=== PATIENT | female | born 1960 | race Caucasian/White ===

== ENCOUNTER 2018-02-07 06:47 | Inpatient (IN) | payer OTHER ==
[~2018-02-07] VITALS: Ht 170.2 cm; Wt 94.7 kg
[~2018-02-07 06:47] MED LIST: ALIG4CAP PO; ALPR1TAB3 PO; ATOR20TA15 PO; CLAR10CA3 PO; CYCL10TA PO; GABA600T PO; HYDR-3366 PO; HYDR50TA3 PO; METO100T PO; MULTTAB67 PO; PANT40TA3 PO; ZALE10 PO
[2018-02-07] MEDS ORDERED: ACETAMINOPHEN 1000 MG/100 ML 100 ML IV ONE (07:05)
[2018-02-07] MEDS ORDERED: ARTIFICIAL TEARS OPTH OINT 3.5 APPLIC/3.5 GM TUBO ONE (07:05)
[2018-02-07] MEDS ORDERED: PROPOFOL 500 MG/50 ML INJ 150 ML ONE (07:05)
[2018-02-07] MEDS ORDERED: HYDROmorphone HCL PF 2 MG/ML VIAL ONE (07:06)
[2018-02-07] MEDS ORDERED: MORPHINE SULFATE 4 MG/ML INJ ONE ×2 (07:07→14:39)
[2018-02-07] MEDS ORDERED: METOPROLOL TARTRATE 25 MG TAB PO PRN (07:30)
[2018-02-07] MEDS ORDERED: SODIUM CHLORID 0.9% 500 ML IV PRN (07:30)
[2018-02-07] MEDS ORDERED: POVIDONE IODINE 5% (ANTISEPSIS KIT) 4 APPLICATIONS EACH NARE PRN (07:30)
[2018-02-07] MEDS ORDERED: INSULIN HUMAN REGULAR 1,000 UNITS/10 ML VIAL SQ PRN (07:30)
[2018-02-07] MEDS ORDERED: LACTATED RINGER'S 1000 ML IV PRN (07:30)
[2018-02-07] MEDS ORDERED: CHLORHEXIDINE GLUCONATE 2 % 1 PACK (2 CLOTHS) TOPICAL PRN (07:30)
[2018-02-07] MEDS ORDERED: THROMBIN (TOPICAL) 5,000 UNIT VIAL ONE (07:32)
[2018-02-07] MEDS ORDERED: GENTAMICIN SULFATE 80 MG/2 ML VIAL ONE (07:32)
[2018-02-07] MEDS ORDERED: BUPIVACAINE/EPINEPHRINE 0.5% 50 ML VIAL ONE (07:32)
[2018-02-07] MEDS ORDERED: VANCOMYCIN HCL 1000 MG VIAL ONE (07:32)
[2018-02-07] MEDS ORDERED: GELFOAM SIZE 100 ONE (07:32)
[2018-02-07] MEDS ORDERED: ceFAZolin 2 GM PREMIX 50 ML ONE (07:32)
[2018-02-07] MEDS ORDERED: VANCOMYCIN 1 GM/200 ML PREMIX IV SCH (07:45)
[2018-02-07] MEDS ORDERED: CHLORHEXIDINE GLUCONATE 2 % 1 PACK (2 CLOTHS) TOPICAL SCH (07:45)
[2018-02-07] MEDS: SODIUM CHLOR 0.9% 1000 ML INJ 1,000 ML IV SCH (07:45)
[2018-02-07 08:51] LABS: BILIRUBIN, URINE NEG (NEG); BLOOD, URINE NEG (NEG); GLUCOSE,URINE NEG (NEG); KETONE, URINE NEG (NEG); NITRITE,URINE NEG (NEG); URINE COLOR YELLOW (YELLW/STRAW); URINE LEUKOCYTE ESTERASE NEG (NEG)
[2018-02-07 09:22] LABS: BICARBONATE 26.1 MEQ/L (21.0-32.0); CALCIUM 9.2 MG/DL (8.5-10.1); CREATININE 0.78 MG/DL (0.50-1.00)
[2018-02-07] MEDS ORDERED: ZALEPLON 10 MG CAP PO PRN (10:30)
[2018-02-07] MEDS ORDERED: ACETAMINOPHEN/HYDROcodone 325 MG/10 MG TAB PO PRN (10:30)
[2018-02-07] MEDS ORDERED: MORPHINE SULFATE 4 MG/ML INJ IV PUSH PRN ×2 (10:30)
[2018-02-07] MEDS ORDERED: ACETAMINOPHEN 325 MG TAB PO PRN (10:30)
[2018-02-07] MEDS ORDERED: ceFAZolin 2 GM PREMIX 50 ML IV ONE (10:51)
[2018-02-07] MEDS ORDERED: PANTOPRAZOLE SODIUM 40 MG VIAL IVP SCH (12:00)
[2018-02-07] MEDS: ALPRAZolam 1 MG TAB PO SCH ×2 (12:00→23:55)
[2018-02-07] MEDS ORDERED: MIDAZOLAM HCL 2 MG/2 ML VIAL ONE ×3 (12:18→14:37)
[2018-02-07] MEDS ORDERED: PROPOFOL 500 MG/50 ML INJ 100 ML ONE (12:19)
[2018-02-07] MEDS: GABAPENTIN 300 MG CAP PO SCH ×2 (13:00→18:00)
[2018-02-07] MEDS: CYCLOBENZAPRINE HCL 10 MG TAB PO SCH ×2 (13:00→18:00)
[2018-02-07] MEDS ORDERED: DO NOT ADM ANY ANTICOAGULANT DRUGS PRN (14:21)
[2018-02-07] MEDS ORDERED: *RESP: ALBUTEROL 2.5 MG/3 ML NEB (PRN) PERIprocedural Use ONLY NEB ONE (14:29)
--- NOTE | 2018-02-07 14:30 | RADRPT ---
EXAM DATE: 02/07/2018 2:14 PM EDT AGE/SEX: 57 years / Female INDICATIONS: Herniated disk, stenosis, fusion L4-L5. CLINICAL DATA: This is the patient's initial encounter. Patient reports that signs and symptoms have been present for 1 day and indicates a pain score of Nonresponsive. MEDICAL/SURGICAL HISTORY: Non-responsive. Non-responsive. COMPARISON: No prior exams available for comparison. FINDINGS: 2 images obtained in the operating room during a procedure demonstrates posterior spinal hardware at L4-L5 consisting of bilateral pedicular screws and vertical stabilization rods. Material is also been placed at the L4-L5 disc space. CONCLUSION: Images document changes related to posterior fusion at L4-L5. Electronically signed by: Fred Palafox MD 02/07/2018 2:29 PM EDT
[2018-02-07] MEDS ORDERED: *morphine SULFATE 4 MG/ML PERIprocedure ONLY ONE ×2 (14:43→14:51)
[2018-02-07] MEDS ORDERED: LORazepam 2 MG/ML VIAL ONE (14:44)
[2018-02-07] MEDS ORDERED: LORazepam 2 MG/ML VIAL IV ONE (14:45)
--- NOTE | 2018-02-07 14:54 | PD.OP ---
Operative Report Date of Surgery: Feb 07, 2018 Preoperative Diagnosis: L4-5 spondylolisthesis Postoperative Diagnosis: L4-5 spondylolisthesis Procedure: L4-L5 laminectomy, interbody arthrodhesis using PEEK cage and autologous bone graft, L4-L5 instrumental fixation using transpedicular screws and rods, L4-L5 posterolateral fusion using autologous bone graft and demineralized bone matrix. Microsurgical dissection Anesthesia: general Surgeon: Clifford Estevez Bender Hand(s): Bertha Abreu Operation and Findings: INDICATIONS FOR THE SURGICAL PROCEDURE Ms hartman is a 57 year-old female who presented with intractable mechanical back pain and soniya evidence of L5 lower extremity radiculopathy. She was found to have spondylolisthesis with instability at L4-5 during flexion extension xrays. She failed maximum nonsurgical management including multiple modalities of conservative treatment as well as pain management interventions by an interventional pain specialist. A surgical decompression and arthrodhesis were indicated as a last resort. The [id number] details of the procedure, indications, alternatives, risks and potential complications were fully discussed with the patient. The patient fully understood. All the questions were answered. No guarantees were given. The patient voiced requesting the procedure and provided informed consents. The patient was offered the alternative of delaying the procedure and continuing with nonsurgical management. DETAILS OF THE SURGICAL PROCEDURE Prior to the procedure, the surgical incision was marked in the preoperative surgical holding room, and the procedure, risks, and potential complications revisited with the patient. Placement of electrodes for intraoperative neurophysiological monitoring was completed. The patient was taken to the operative room, and following induction of general anesthesia, endotracheal intubation was performed. A Muller catheter, bilateral ROCHELLE hose and sequential compression devices were placed and kept throughout the procedure. The patient was positioned prone, over a Harley table over a bolsters. All pressure in the preoperative surgical holding room points were carefully padded with eggcrate and gel mattress. The eyes were tapped shut after ointment was applied by the anesthesiologist to prevent corneal abrasion. A Brayan hugger was placed over the expossed lower body to maintain control of the core body temperature. The electrophysiological team placed the needles and electrodes in their proper location and baseline SSEP's and EMG potentials were registered. The entrance to each pedicles was marked using a C arm. The lumbar region was prepped and draped in the usual sterile fashion. The surgical procedure was performed in several steps as follow: SURGICAL APPROACH Once the patient was positioned, a localizing cross-table lateral x-ray was performed with a C-arm. Two paramedian small incisions were outlined on the skin approximately 3cm from the midline. The skin incisions were made with a # 10 blade. Small bleeders were controlled with the cautery. The dissection was then carried out into deper planes and through the thoracolumbar fascia with a Bovie. The intermuscular septum was identified and the myscles were blunted dissected along the septum. The facets and transverse process of L4 and L5 were exposed and the proper anatomical landmarks were identidied. A microsurgical self-retaining retractor was placed on the incision, and a localizing lateralizing cross-table x-ray was performed with an instrument underneath a lamina of the lumbar spine. INSTRUMENTAL FIXATION At this point in the procedure, placement of bilateral transpedicular screws was necessary for stabilization of the spine. Initially, the entry point for the screw was selected anatomically at the junction of the facet, with the transverse process, and the pars interarticularis at L4 and L5. This was started with a Giamshetti needle followed by the use of a lawrence wire. A tap was used to create the threads for the screws. Finally bilateral transpedicular screws were carefully placed bilaterally at L4, and L5 under fluoroscopic visualization. An appropriate purchase was achieved with all screws. The position of each screw was assessed anatomically with an AP, lateral, oblique Xrays. An intraoperative scan view of the spine was then performed using the iso -centric c-arm. Each screw was then assessed electrophysiologically stimulating each screw with a nerve stimulator. SURGICAL DECOMPRESSION There was significant mass effect with compression of the neural structures. In order to relieve neural compression, it was necessary to perform a decompressive laminectomy, with decompression of the spinal canal and bilateral lateral recesses. Note that the scope of such decompression was significantly more extensive than the minimal exposure necessary to perform an interbody fusion, as there was extreme facet arthropathy with near complete collapse of the disk spaces and severe stenosis caused by the hyperthrophic joint facets. At this point of the procedure the operative microscope was draped in the usual sterile fashion and brought to the field. The rest of the surgical procedure was performed using microdissection technique with the exception of the closure. Under the operating microscope, a decompressive laminectomy was carried out at L4-L5 as follow: The laminae, base of the spinous processes and facets were carefully drilled exposing the ligamentum flavum. The facets were abnormal with severe degenerative changes and mechanical instability. A broad- based disk protusion was seen. A near complete facetectomy was necessary resulting in further mechanical instability. The ligamentum flavum appeared hypertrophic, resulting on mass effect on the dorsal surface of the neural structures. The superior free border of the ligamentum flavum was elevated with a ligament dissector and the ligamentum flavum was removed with a 3 and 4 mm Kerrison forceps. The ligament was very adherent to the dural sac and during the dissection, and extreme care was taken during the dissection. The exiting nerve roots were identified, and a wide foraminotomy was performed with a Kerrison in their trajectory towards the neural foramen. Epidural veins located laterally to the dural sac were coagulated with the bipolar cautery, and then incised using microscissors. Gentle medial retraction of the dural sac allowed me to expose the disc space for the discectomy. Upon completion of the discectomy, an excellent decompression of the neural structures was achieved. Increased motion was noted thorough the procedure, which was consistent with mechanical instability. INTERBODY ARTHRODHESIS In order to correct the narrowing of the disk space and maintain distraction of the space, and to achieve a solid interbody fusion, it was necessary the insertion of an interbody device into the disk space. Otherwise, the disk space would collapse, compromising the result of the surgical procedure. At this point of the procedure, the annulus fibrosus of the disk was carefully coagulated with a bipolar cautery and incised using an 11 bladed knife. Then, a microdiscectomy was carried out in a standard fashion using a combination of straight and up-biting pituitary forceps. A reverse angle curette was applied underneath the posterior longitudinal ligament, and used to push the disk fragments into the disk space, so they can be safely removed with a pituitary forceps. Once the discectomy was completed, it was necessary to decorticate the endplates, in order to eliminate the cartilaginous endplate and to expose healthy bone appropriate to perform the interbody fusion. The endplates at L4- L5 were then thoroughly decorticated using increasing size bone jose and ring curets, eliminating the cartilaginous fragments from both, the superior and inferior endplates. A disk space distractor was applied to the pedicle screws and gentle distraction was applied. This maneuver was assisted by the use of a disk distractor. Increased motility was noted at the disk, which was consistent with instability due to facet arthropathy. Once a thorough preparation of the disk space was achieved, the disk space was irrigated with antibiotic solution, and the interbody fusion was performed by carefully impacting a PPEK cage filled with autologous bone graft. The cage was carefully positioned using impactors. A solid position of the cage with good purchase was achieved. The position of the cage was assessed anatomically with a probe and radiologically with the C-arm. POSTEROLATERAL FUSION The posterolateral fusion is a critical component to the procedure, to prevent future fatigue and failure of the instrumental fixation. Initially, the transverse processes of the vertebral bodies, lateral surface of the facets and the lateral gutters of the spine were carefully cleaned, eliminating all soft tissue and muscle attachments. The area was then irrigated with a large amount of antibiotic solution. Subsequently, the transverse processes, lateral surface of the facets, and lateral gutters of the spine were thoroughly decorticated using the TPS drill with a 5mm cutting loco, exposing cancellous bone, in preparation for the posterolateral fusion. The incision was again irrigated with antibiotic solution. Then, the posterolateral fusion was then performed by carefully packing the lateral gutters of the spine at L4-L5 with autologous bone combined with demineralized bone matrix. COMPLETION OF THE INSTRUMENTATION AND CLOSURE The rods were brought to the field, applied to all the screws, and the screw caps were sequentially applied. Compression was performed between the pedicle screws, and final tightening of the screws was completed using a torque wrench. The incision was again thoroughly irrigated with several liters of antibiotic solution, and hemostasis secured with the bipolar cautery. A Valsalva Maneuver performed by the anesthesiologist failed to show any evidence of cerebrospinal fluid leak or bleeding. A 7 mm Harley-Adam drain was left in the epidural space and externalized through a separate stab incision. The incision was then closed in planes. 0 Vicryl was used in an interrupted fashion to close the thoracolumbar fascia and the superficial fascia. The subcutaneous tissue was then approximated using 3-0 Vicryl in an interrupted fashion. Special care was taken to avoid space. The skin was then closed with 4-0 Vicryl in a running, subcuticular fashion. Dermabond was applied to the skin. Each plane of closure was irrigated with antibiotic solution. At the end of the procedure the sponge, needle and instrument counts were all correct. Estimated blood loss was 200 cc. No blood transfusion was given. The entire procedure was performed using continuous electrophysiological monitoring of the somatosensorial evoked potentials and EMG. The patient received prophylactic antibiotics. The patient was then extubated and transferred to the recovery room in stable condition. Clifford Estevez MD Feb 07, 2018 14:54
[2018-02-07] MEDS: NS + KCL 20 MEQ INJ 1,000 ML IV SCH ×2 (15:05→20:20)
[2018-02-07] MEDS ORDERED: NALOXONE HCL 0.4 MG/ML AMP IV PUSH PRN (16:30)
[2018-02-07] MEDS ORDERED: diphenhydrAMINE HCL 50 MG/ML VIAL IV PUSH PRN (16:30)
[2018-02-07] MEDS: HYDROmorphone HCL PCA 6 MG/30 ML IV SCH (16:54)
--- NOTE | 2018-02-07 17:00 | EKG ---
Date Performed: 02/07/2018 Time Performed: 07:17:50 PTAGE: 57 years EKG: Sinus rhythm MODERATE INTRAVENTRICULAR CONDUCTION DELAY BORDERLINE ECG PREVIOUS TRACING : 06/12/1999 17.44 Since the previous tracing, no significant change noted DOCTOR: Reshma Templeton Interpretating Date/Time 02/07/2018 16:58:33
[2018-02-07] MEDS ORDERED: PROPOFOL 200 MG/20 ML AMP IV ONE (18:17)
[2018-02-07] MEDS ORDERED: ROCURONIUM INJ 50 MG/5 ML SYRINGE IV PUSH ONE (18:17)
[2018-02-07] MEDS ORDERED: ePHEDrine/NS 25 MG/5 ML SYRINGE IV ONE (18:17)
[2018-02-07] MEDS ORDERED: LACTATED RINGER'S 1000 ML INJ 2,000 ML IV ONE (18:17)
[2018-02-07] MEDS ORDERED: LIDOCAINE HCL 1% PF 5 ML SYRINGE OTHER ONE (18:17)
[2018-02-07] MEDS ORDERED: PHENYLEPH/NS 1000 MCG/10 ML SYR IV ONE (18:17)
[2018-02-07] MEDS ORDERED: ONDANSETRON HCL 4 MG/2 ML VIAL IV PUSH ONE (18:17)
[2018-02-07] MEDS ORDERED: DEXAMETHASONE SOD PHOS 4 MG/ML VIAL IV ONE (18:17)
[2018-02-07] MEDS ORDERED: PHENYLEPHRINE HCL 10 MG/ML VIAL IV ONE (18:17)
[2018-02-07 19:50] VITALS: BP 106/59; PULSE 101; RESP 18; TEMP 97; O2SAT 95
[2018-02-07] MEDS ORDERED: PANTOPRAZOLE SOD 40 MG DELAYED RELEASE TAB PO SCH (21:00)
[2018-02-07] MEDS: PCA - TOTAL MG DILAUDID DELIVERED PER SHIFT SCH (22:00)
[2018-02-07] MEDS: ATORVASTATIN 20 MG TAB PO SCH (22:04)
[2018-02-07] MEDS: ceFAZolin 2 GM PREMIX 50 ML IV SCH (22:04)
[2018-02-07] MEDS: METOPROLOL TARTRATE 100 MG TAB PO SCH (22:05)
[2018-02-08 00:01] VITALS: BP 101/59; PULSE 90; RESP 16; TEMP 98.7; O2SAT 99
[2018-02-08] MEDS: HYDROmorphone HCL PCA 6 MG/30 ML IV SCH ×2 (01:36→11:49)
[2018-02-08 04:00] VITALS: BP 104/59; PULSE 94; RESP 18; TEMP 98.4; O2SAT 95
[2018-02-08] MEDS: ceFAZolin 2 GM PREMIX 50 ML IV SCH ×2 (04:25→11:35)
[2018-02-08] MEDS: NS + KCL 20 MEQ INJ 1,000 ML IV SCH (05:24)
[2018-02-08] MEDS: ALPRAZolam 1 MG TAB PO SCH ×2 (05:24→11:35)
[2018-02-08] MEDS: PCA - TOTAL MG DILAUDID DELIVERED PER SHIFT SCH ×3 (05:24→22:00)
[2018-02-08 07:57] LABS: AUTOMATED NEUTROPHIL # 16.3 TH/MM3 (1.8-7.7); BASOPHIL % 0.1 % (0.0-2.0); HEMATOCRIT 38.7 % (35.0-46.0); LYMPH % 8.5 % (9.0-44.0); LYMPHOCYTE # 1.6 TH/MM3 (1.0-4.8); MEAN CELL VOLUME 84.8 FL (80.0-100.0); MEAN CORPUSCULAR HEMOGLOBIN 28.5 PG (27.0-34.0); MEAN CORPUSCULAR HGB CONC 33.7 % (32.0-36.0); MONO % 4.4 % (0.0-8.0); MONOCYTE # 0.8 TH/MM3 (0-0.9); PLATELET COUNT 312 TH/MM3 (150-450); RED BLOOD COUNT 4.56 MIL/MM3 (4.00-5.30); RED CELL DISTRIBUTION WIDTH 13.9 % (11.6-17.2); WHITE BLOOD COUNT 18.7 TH/MM3 (4.0-11.0)
[2018-02-08 08:00] VITALS: BP 94/52; PULSE 91; RESP 19; TEMP 99; O2SAT 96
--- NOTE | 2018-02-08 08:17 | PD.CONS ---
HPI Service [facility] Hospitalists Consult Requested By Dr. Estevez Reason for Consult Postoperative medical management Primary Care Physician Doug Aceves D.O. Diagnoses: History of Present Illness 67-year-old female patient with a past medical history which includes hypertension, hyperlipidemia, GERD, migraine headache and tobacco abuse. On patient underwent: L4-L5 laminectomy, interbody arthrodhesis using PEEK cage and autologous bone graft, L4-L5 instrumental fixation using transpedicular screws and rods, L4-L5 posterolateral fusion using autologous bone graft and demineralized bone matrix. Microsurgical dissection with Dr. Estevez. We have been consulted for assistance with postoperative medical management. Patient sitting in chair reports minimal pain. Denies N/V, shortness of breath, chest pain, fevers or chills. Review of Systems ROS Limitations: Clinical Condition Constitutional: DENIES: Fever, Chills, Dizziness Eyes: DENIES: Blurred vision, Diplopia, Vision loss Respiratory: DENIES: Cough, Sputum production, Shortness of breath Cardiovascular: DENIES: Chest pain, Palpitations, Dyspnea on Exertion Gastrointestinal: DENIES: Constipation, Diarrhea, Nausea, Vomiting Musculoskeletal: COMPLAINS OF: Stiffness, Back pain Neurologic: DENIES: Headache, Localized weakness, Paresthesias Psychiatric: DENIES: Anxiety, Confusion, Depression Past Family Social History Past Medical History Hypertension Hyperlipidemia GERD Migraine headaches History of tobacco use Anxiety Diverticulitis Inflammatory bowel disease Leukocytosis Past Surgical History Adenoidectomy Breast biopsy Cholecystectomy Ear surgery Hysterectomy Shoulder surgery Tonsillectomy Colonoscopy 2014 Reported Medications Gabapentin 600 Mg Tab 600 Mg PO TID Pantoprazole (Pantoprazole Sodium) 40 Mg Tab 40 Mg PO BID [place] (Hydrocodone-Acetaminophen) 10-325 Mg Tab 1 Tab PO Q6H PRN Multiple Vitamin 1 Tab 1 Tab PO DAILY Metoprolol Tartrate 100 Mg Tab 100 Mg PO BID Hydrochlorothiazide 50 Mg Tab 50 Mg PO DAILY Flexeril (Cyclobenzaprine HCl) 10 Mg Tab 10 Mg PO TID Claritin (Loratadine) 10 Mg Cap 10 Mg PO DAILY Atorvastatin (Atorvastatin Calcium) 20 Mg Tab 20 Mg PO HS Sonata (Zaleplon) 10 Mg Cap 10 Mg PO HS PRN Alprazolam 1 Mg Tab 1 Mg PO Q6H Align (Lactobacillus Rhamnosus (GG)) 4 Mg (1 Billion Cell) Cap 4 Mg PO DAILY Allergies: Coded Allergies: adhesive tape (Verified Allergy, Severe, Rash, 02/07/18) pseudoephedrine (Verified Allergy, Severe, hyperactivity, 02/07/18) cannot take the D form fentanyl (Verified Allergy, Intermediate, "SLOWED BREATHING", 02/07/18) Uncoded Allergies: DECONGESTANTS (Adverse Reaction, Intermediate, "HYPER", 04/22/10) Family History Father at 69 Mother at 86 Family medical history includes breast cancer, brain cancer, non-Hodgkin's lymphoma, malignant neoplasm of the sinus, diabetes and alcoholism Social History currently unemployed Denies EtOH use Tobacco use smokes 1 pack per day Physical Exam Vital Signs Vital Signs Date Time Temp Pulse Resp B/P (MAP) Pulse Ox O2 Delivery O2 Flow Rate FiO2 02/08/18 05:24 7 02/08/18 04:00 98.4 94 18 104/59 (74) 95 02/08/18 01:36 16 02/08/18 00:01 98.7 90 16 101/59 (73) 99 02/07/18 22:00 15 02/07/18 19:58 Nasal Cannula 2.00 02/07/18 19:50 97.0 101 18 106/59 (75) 95 02/07/18 17:00 92 16 111/89 (96) 94 Nasal Cannula 3 02/07/18 16:54 12 02/07/18 16:00 92 12 104/73 (83) 93 Nasal Cannula 3 02/07/18 15:45 98.1 87 12 103/67 (79) 94 Nasal Cannula 3 02/07/18 15:30 90 12 101/58 (72) 93 Nasal Cannula 3 02/07/18 15:15 89 11 99/56 (70) 92 Nasal Cannula 3 02/07/18 15:00 91 12 104/62 (76) 92 Nasal Cannula 3 02/07/18 14:45 100 17 102/60 (74) 90 Aerosol Mask 02/07/18 14:30 95 19 120/64 (82) 95 Aerosol Mask 02/07/18 14:21 98.3 96 18 118/66 (83) 88 Simple Mask 6 02/07/18 08:10 99.1 78 20 122/77 (92) 96 Physical Exam GENERAL: This is an obese, well-developed patient, in no apparent distress. HEAD: Atraumatic. Normocephalic. No temporal or scalp tenderness. EYES: Extraocular motions intact. No scleral icterus. No injection or drainage. CARDIOVASCULAR: Regular rate and rhythm RESPIRATORY: Clear to auscultation. Breath sounds equal bilaterally. GASTROINTESTINAL: Abdomen soft, non-tender, nondistended. MUSCULOSKELETAL: Extremities without clubbing, cyanosis, or edema. No joint tenderness, effusion, or edema noted. No calf tenderness. Negative Homans sign bilaterally. RACHELE drain present with serosanguineous fluid noted NEUROLOGICAL: Awake and alert. No focal deficits noted. Motor and sensory grossly within normal limits. Five out of 5 muscle strength in all muscle groups. Normal speech. Laboratory Laboratory Tests Test 02/07/18 08:30 02/08/18 07:08 Urine Color YELLOW Urine Turbidity CLEAR Urine pH 7.0 Urine Specific [place] 1.014 Urine Protein NEG Urine Glucose (UA) NEG Urine Ketones NEG Urine Occult Blood NEG Urine Nitrite NEG Urine Bilirubin NEG Urine Urobilinogen LESS THAN 2 Urine Leukocyte Esterase NEG Urine WBC 1 Microscopic Urinalysis Comment CATH-CULT NOT IND White Blood Count 18.7 Red Blood Count 4.56 Hemoglobin 13.0 Hematocrit 38.7 Mean Corpuscular Volume 84.8 Mean Corpuscular Hemoglobin 28.5 Mean Corpuscular Hemoglobin Concent 33.7 Red Cell Distribution Width 13.9 Platelet Count 312 Mean Platelet Volume 8.0 Neutrophils (%) (Auto) 87.0 Lymphocytes (%) (Auto) 8.5 Monocytes (%) (Auto) 4.4 Eosinophils (%) (Auto) 0.0 Basophils (%) (Auto) 0.1 Neutrophils # (Auto) 16.3 Lymphocytes # (Auto) 1.6 Monocytes # (Auto) 0.8 Eosinophils # (Auto) 0.0 Basophils # (Auto) 0.0 CBC Comment DIFF FINAL Differential Comment Result Diagram: 02/08/18 0708 02/07/18 0755 Imaging Last Impressions Lumbar Spine X-Ray 02/07/18 0000 Signed Impressions: CONCLUSION: Images document changes related to posterior fusion at L4-L5. Assessment and Plan Problem List: (1) Lumbar spondylosis ICD Codes: M47.816 - Lumbar spondylosis Status: Acute Plan: On 02/07/2018 patient underwent: L4-L5 laminectomy, interbody arthrodhesis using PEEK cage and autologous bone graft, L4-L5 instrumental fixation using transpedicular screws and rods, L4-L5 posterolateral fusion using autologous bone graft and demineralized bone matrix. Microsurgical dissection with Dr. Estevez. Patient currently on Dilaudid COTTRELL OPERATOR, discussed with Dr. Estevez ok to DC COTTRELL OPERATOR and start PO [place] as needed for pain Patient on scheduled Xanax 1 mg PO Q6H which she takes at home on a regular bases, will decrease to 0.5 mg Q6H also DC Flexeril Teds and SCDs for DVT prophylaxis (2) Hypertension ICD Codes: I10 - Essential (primary) hypertension Plan: Continue home metoprolol tartrate 100 mg p.o. twice daily (3) Hyperlipidemia ICD Codes: E78.5 - Hyperlipidemia, unspecified Plan: Continue home atorvastatin 20 mg p.o. nightly (4) GERD (gastroesophageal reflux disease) ICD Codes: K21.9 - Gastro-esophageal reflux disease without esophagitis Plan: Continue home pantoprazole 40 mg p.o. twice daily Assessment and Plan Patient examined. Assessment and plan formulated with Lanie CORBETT-C. I agree with the above. - Case d/w Dr. Estevez (02/08/18). - Stop COTTRELL OPERATOR. Start prn norco - Decrease xanax to 0.5mg QID - stop flexeril - stop sonata - BP trending low - stop HCTZ - decrease metoprolol to 50mg BID with parameters. Lanie De Los Santos Feb 08, 2018 08:17 Rupert López DO Feb 08, 2018 13:11
[2018-02-08 08:23] LABS: CALCIUM 8.4 MG/DL (8.5-10.1); CREATININE 0.72 MG/DL (0.50-1.00)
[2018-02-08] MEDS: LORATADINE 10 MG TAB PO SCH (08:39)
[2018-02-08] MEDS: CYCLOBENZAPRINE HCL 10 MG TAB PO SCH ×2 (08:39→11:38)
[2018-02-08] MEDS: GABAPENTIN 300 MG CAP PO SCH ×3 (08:39→17:07)
[2018-02-08] MEDS: METOPROLOL TARTRATE 100 MG TAB PO SCH ×2 (08:40→22:32)
[2018-02-08] MEDS: MULTIVITAMIN TAB PO SCH (08:40)
[2018-02-08] MEDS: SODIUM CHLOR 0.9% 1000 ML INJ 1,000 ML IV SCH (08:48)
[2018-02-08] MEDS: PANTOPRAZOLE SOD 40 MG DELAYED RELEASE TAB PO SCH (09:00)
[2018-02-08] MEDS ORDERED: HYDROCHLOROTHIAZIDE 50 MG TAB PO SCH (09:00)
[2018-02-08] MEDS ORDERED: LACTOBACILLUS RHAMNOSUS GG PO SCH (09:00)
--- NOTE | 2018-02-08 10:15 | HHI.NSPN ---
(Tess Miller) Note Status Status: Progress Note (Tess Miller) Interval History Interval History Ms. Perez is a 57 year old female who underwent a L4-L5 laminectomy, interbody arthrodesis using PEEK cage and autologous bone graft, L4-L5 instrumental fixation using transpedicular screws and rods, microsurgical dissection on Feb 07, 2018 for L4-5 spondylolisthesis. 02/08: POD 1, doing well, reports minimal back pain currently, has not gotten out bed. (Tess Miller) Labs, Micro, & Vital Signs Results Date Time Temp Pulse Resp B/P (MAP) Pulse Ox O2 Delivery O2 Flow Rate FiO2 02/08/18 08:00 99.0 91 19 94/52 (66) 96 02/08/18 05:24 7 02/08/18 04:00 98.4 94 18 104/59 (74) 95 02/08/18 01:36 16 02/08/18 00:01 98.7 90 16 101/59 (73) 99 02/07/18 22:00 15 02/07/18 19:58 Nasal Cannula 2.00 02/07/18 19:50 97.0 101 18 106/59 (75) 95 02/07/18 17:00 92 16 111/89 (96) 94 Nasal Cannula 3 02/07/18 16:54 12 02/07/18 16:00 92 12 104/73 (83) 93 Nasal Cannula 3 02/07/18 15:45 98.1 87 12 103/67 (79) 94 Nasal Cannula 3 02/07/18 15:30 90 12 101/58 (72) 93 Nasal Cannula 3 02/07/18 15:15 89 11 99/56 (70) 92 Nasal Cannula 3 02/07/18 15:00 91 12 104/62 (76) 92 Nasal Cannula 3 02/07/18 14:45 100 17 102/60 (74) 90 Aerosol Mask 02/07/18 14:30 95 19 120/64 (82) 95 Aerosol Mask 02/07/18 14:21 98.3 96 18 118/66 (83) 88 Simple Mask 6 Constitutional Vital Signs Date Time Temp Pulse Resp B/P (MAP) Pulse Ox O2 Delivery O2 Flow Rate FiO2 02/08/18 08:00 99.0 91 19 94/52 (66) 96 02/08/18 05:24 7 02/08/18 04:00 98.4 94 18 104/59 (74) 95 02/08/18 01:36 16 02/08/18 00:01 98.7 90 16 101/59 (73) 99 02/07/18 22:00 15 02/07/18 19:58 Nasal Cannula 2.00 02/07/18 19:50 97.0 101 18 106/59 (75) 95 02/07/18 17:00 92 16 111/89 (96) 94 Nasal Cannula 3 02/07/18 16:54 12 02/07/18 16:00 92 12 104/73 (83) 93 Nasal Cannula 3 02/07/18 15:45 98.1 87 12 103/67 (79) 94 Nasal Cannula 3 02/07/18 15:30 90 12 101/58 (72) 93 Nasal Cannula 3 02/07/18 15:15 89 11 99/56 (70) 92 Nasal Cannula 3 02/07/18 15:00 91 12 104/62 (76) 92 Nasal Cannula 3 02/07/18 14:45 100 17 102/60 (74) 90 Aerosol Mask 02/07/18 14:30 95 19 120/64 (82) 95 Aerosol Mask 02/07/18 14:21 98.3 96 18 118/66 (83) 88 Simple Mask 6 (Tess Miller) Physical Exam Ms. Perez is awake and oriented to place and person. No apparent distress in bed. Cranial nerve examination: pupils equal, round and reactive to light. . Neck is soft and supple Motor: moves all four extremities with good strength Wound with Optifoam dressing. RACHELE drain in place. bilateral plantar flexion response. Heart: regular rate rhythm Lungs: clear (Tess Miller) Medications Current Medications Current Medications Medications (Trade) Dose Ordered Sig/Dylan Route PRN Reason Start Time Stop Time Status Last Admin Dose Admin Lactated Ringer's 1,000 ml @ 30 mls/hr Q24H PRN IV SEE LABEL COMMENTS 02/07/18 07:30 02/10/18 07:29 02/07/18 08:00 Sodium Chloride 500 ml @ 30 mls/hr [id number] PRN IV SEE LABEL COMMENTS 02/07/18 07:30 02/10/18 07:29 Metoprolol Tartrate (Lopressor) 25 mg COPY OPERATOR PRN PO SEE LABEL COMMENTS 02/07/18 07:30 02/10/18 07:29 Povidone Iodine (Betadine 5% Antisepsis Kit) 1 applic COPY OPERATOR PRN EACH NARE SEE LABEL COMMENTS 02/07/18 07:30 02/10/18 07:29 02/07/18 08:00 Chlorhexidine Gluconate (Chlorhexidine 2% Cloth) 3 pack COPY OPERATOR PRN TOPICAL SEE LABEL COMMENTS 02/07/18 07:30 02/10/18 07:29 02/07/18 07:15 Insulin Human Regular (NovoLIN R INJ) See Protocol Table ... COPY OPERATOR PRN SQ SEE PROTOCOL TABLE 02/07/18 07:30 02/10/18 07:29 Chlorhexidine Gluconate (Chlorhexidine 2% Cloth) 1 pack UNSCH TOPICAL 02/07/18 07:45 02/09/18 07:44 Vancomycin/Sodium Chloride 200 ml @ 200 mls/hr COPY OPERATOR IV 02/07/18 07:45 02/07/18 09:05 Sodium Chloride 1,000 ml @ 30 mls/hr Q24H IV 02/07/18 07:45 02/08/18 08:48 Alprazolam (Xanax) 1 mg Q6H PO 02/07/18 12:00 02/08/18 05:24 Atorvastatin Calcium (Lipitor) 20 mg HS PO 02/07/18 21:00 02/07/18 22:04 Cyclobenzaprine HCl (Flexeril) 10 mg TID PO 02/07/18 13:00 02/08/18 08:39 Gabapentin (Neurontin) 600 mg TID PO 02/07/18 13:00 02/08/18 08:39 Hydrochlorothiazide (Hydrodiuril) 50 mg DAILY PO 02/08/18 09:00 02/08/18 08:39 Loratadine (Claritin) 10 mg DAILY PO 02/08/18 09:00 02/08/18 08:39 Metoprolol Tartrate (Lopressor) 100 mg BID PO 02/07/18 21:00 02/08/18 08:40 Zaleplon (Sonata) 10 mg HS PRN PO INSOMNIA 02/07/18 10:30 Multivitamins (Theragran) 1 tab DAILY PO 02/08/18 09:00 02/08/18 08:40 Potassium Chloride/Sodium Chloride 1,000 ml @ 100 mls/hr Q10H IV 02/07/18 10:20 02/08/18 05:24 Cefazolin Sodium/ Dextrose 50 ml @ 100 mls/hr Q8H IV 02/07/18 20:00 02/08/18 12:29 02/08/18 04:25 Acetaminophen (Tylenol) 650 mg Q4H PRN PO TEMPERATURE > 101.5 F 02/07/18 10:30 Miscellaneous Information ([facility] Nursing Information) ALL NURSING DEPARTME... UNSCH PRN .XX SEE LABEL COMMENTS 02/07/18 14:21 02/08/18 14:20 Naloxone HCl (Narcan Inj) 0.4 mg UNSCH PRN IV PUSH RESPIRATORY RATE LESS THAN 10 02/07/18 16:30 Diphenhydramine HCl (Benadryl Inj) 25 mg Q6H PRN IV PUSH ITCHING 02/07/18 16:30 Hydromorphone HCl (Dilaudid BUSINESS SERVICES ANALYST Inj) 6 mg UNSCH IV 02/07/18 16:30 02/08/18 01:36 BUSINESS SERVICES ANALYST Dosage Infused (Pha) 1 Q8HR .XX 02/07/18 22:00 02/08/18 05:24 Pantoprazole Sodium (Protonix) 40 mg DAILY PO 02/08/18 09:00 (Tess Miller) Medical Decision Making MDM Remarks 57 y/o female s/p L4-L5 PLIF 02/08/18 for lumbar spondylolisthesis (Tess Miller) Plan Plan Remarks cont BUSINESS SERVICES ANALYST for pain control, dc dumont tolerating diet, SCDs and TEDs for dvt prophylaxis will cont RACHELE drain today, dc tomorrow mobilize with PT, LSO when out of bed appreciate medical assistance (Tess Miller) Attending Statement The exam, history, and the medical decision-making described in the above note were completed with the assistance of the mid-level provider. I reviewed and agree with the findings presented. I attest that I had a [id number] encounter with the patient on the same day, and personally performed and documented my assessment and findings in the medical record. (Clifford Estevez MD) Tess Miller Feb 08, 2018 10:15 Clifford Estevez MD Feb 11, 2018 18:41
[2018-02-08 12:00] VITALS: BP 94/51; PULSE 83; RESP 18; TEMP 99.2; O2SAT 91
[2018-02-08 16:23] VITALS: BP 106/56; PULSE 70; RESP 18; TEMP 98.3; O2SAT 94
[2018-02-08] MEDS: ALPRAZolam 0.5 MG TAB PO SCH ×2 (17:08→23:37)
[2018-02-08 19:21] VITALS: BP 135/62; PULSE 98; RESP 18; TEMP 98.2; O2SAT 93
[2018-02-08] MEDS: ACETAMINOPHEN/HYDROcodone 325 MG/5 MG TAB PO PRN (22:32)
[2018-02-08] MEDS: ATORVASTATIN 20 MG TAB PO SCH (22:32)
[2018-02-09 00:21] VITALS: BP 121/66; PULSE 102; RESP 18; TEMP 98.3; O2SAT 94
[2018-02-09] MEDS: NS + KCL 20 MEQ INJ 1,000 ML IV SCH (02:20)
[2018-02-09 03:22] VITALS: BP 137/80; PULSE 93; RESP 18; TEMP 98.3; O2SAT 92
[2018-02-09] MEDS: ACETAMINOPHEN/HYDROcodone 325 MG/5 MG TAB PO PRN ×2 (04:19→10:13)
[2018-02-09] MEDS: PCA - TOTAL MG DILAUDID DELIVERED PER SHIFT SCH ×2 (06:00→13:57)
[2018-02-09] MEDS: ALPRAZolam 0.5 MG TAB PO SCH ×3 (06:29→16:48)
[2018-02-09 08:00] VITALS: BP 118/65; PULSE 88; RESP 18; TEMP 98.5; O2SAT 96
[2018-02-09] MEDS ORDERED: HYDR-3516 PO (09:28)
[2018-02-09] MEDS ORDERED: GABA300C5 PO (09:29)
[2018-02-09] MEDS: GABAPENTIN 300 MG CAP PO SCH ×3 (09:55→16:48)
[2018-02-09] MEDS: LORATADINE 10 MG TAB PO SCH (09:55)
[2018-02-09] MEDS: METOPROLOL TARTRATE 100 MG TAB PO SCH (09:55)
[2018-02-09] MEDS: MULTIVITAMIN TAB PO SCH (09:55)
[2018-02-09] MEDS: PANTOPRAZOLE SOD 40 MG DELAYED RELEASE TAB PO SCH (09:56)
--- NOTE | 2018-02-09 11:15 | HHI.NSPN ---
(Tess Miller) Note Status Status: Progress Note (Tess Miller) Interval History Interval History Ms. Perez is a 57 year old female who underwent a L4-L5 laminectomy, interbody arthrodesis using PEEK cage and autologous bone graft, L4-L5 instrumental fixation using transpedicular screws and rods, microsurgical dissection on Feb 07, 2018 for L4-5 spondylolisthesis. 02/08: POD 1, doing well, reports minimal back pain currently, has not gotten out bed. 02/09: POD 2, IRON ASSORTER pump dc'ed yesterday due to sleepiness. currently awake, alert , ambulating to bathroom, reports minimal back pain and ready to go home. (Tess Miller) Labs, Micro, & Vital Signs Results Date Time Temp Pulse Resp B/P (MAP) Pulse Ox O2 Delivery O2 Flow Rate FiO2 02/09/18 08:00 98.5 88 18 118/65 (82) 96 02/09/18 03:22 98.3 93 18 137/80 (99) 92 02/09/18 00:21 98.3 102 18 121/66 (84) 94 02/08/18 23:32 18 02/08/18 19:21 98.2 98 18 135/62 (86) 93 02/08/18 16:23 98.3 70 18 106/56 (73) 94 02/08/18 14:30 16 02/08/18 12:00 99.2 83 18 94/51 (65) 91 02/08/18 11:49 18 Constitutional Vital Signs Date Time Temp Pulse Resp B/P (MAP) Pulse Ox O2 Delivery O2 Flow Rate FiO2 02/09/18 08:00 98.5 88 18 118/65 (82) 96 02/09/18 03:22 98.3 93 18 137/80 (99) 92 02/09/18 00:21 98.3 102 18 121/66 (84) 94 02/08/18 23:32 18 02/08/18 19:21 98.2 98 18 135/62 (86) 93 02/08/18 16:23 98.3 70 18 106/56 (73) 94 02/08/18 14:30 16 02/08/18 12:00 99.2 83 18 94/51 (65) 91 02/08/18 11:49 18 (Tess Miller) Review of Systems Constitutional: DENIES: Fever, Chills Musculoskeletal: COMPLAINS OF: Back pain Neurologic: DENIES: Seizures (Tess Miller) Physical Exam Ms. Perez is awake and oriented to place and person. No apparent distress in bed. Cranial nerve examination: pupils equal, round and reactive to light. . Neck is soft and supple Motor: moves all four extremities with good strength Wound with Optifoam dressing. RACHELE drain in place. bilateral plantar flexion response. Heart: regular rate rhythm Lungs: clear (Tess Miller) Medications Current Medications Current Medications Medications (Trade) Dose Ordered Sig/Dylan Route PRN Reason Start Time Stop Time Status Last Admin Dose Admin Lactated Ringer's 1,000 ml @ 30 mls/hr Q24H PRN IV SEE LABEL COMMENTS 02/07/18 07:30 02/10/18 07:29 02/07/18 08:00 Sodium Chloride 500 ml @ 30 mls/hr [id number] PRN IV SEE LABEL COMMENTS 02/07/18 07:30 02/10/18 07:29 Metoprolol Tartrate (Lopressor) 25 mg SOLE CONDITIONER PRN PO SEE LABEL COMMENTS 02/07/18 07:30 02/10/18 07:29 Povidone Iodine (Betadine 5% Antisepsis Kit) 1 applic SOLE CONDITIONER PRN EACH NARE SEE LABEL COMMENTS 02/07/18 07:30 02/10/18 07:29 02/07/18 08:00 Chlorhexidine Gluconate (Chlorhexidine 2% Cloth) 3 pack SOLE CONDITIONER PRN TOPICAL SEE LABEL COMMENTS 02/07/18 07:30 02/10/18 07:29 02/07/18 07:15 Insulin Human Regular (NovoLIN R INJ) See Protocol Table ... SOLE CONDITIONER PRN SQ SEE PROTOCOL TABLE 02/07/18 07:30 02/10/18 07:29 Vancomycin/Sodium Chloride 200 ml @ 200 mls/hr SOLE CONDITIONER IV 02/07/18 07:45 02/07/18 09:05 Sodium Chloride 1,000 ml @ 30 mls/hr Q24H IV 02/07/18 07:45 02/08/18 08:48 Atorvastatin Calcium (Lipitor) 20 mg HS PO 02/07/18 21:00 02/08/18 22:32 Gabapentin (Neurontin) 600 mg TID PO 02/07/18 13:00 02/09/18 09:55 Loratadine (Claritin) 10 mg DAILY PO 02/08/18 09:00 02/09/18 09:55 Multivitamins (Theragran) 1 tab DAILY PO 02/08/18 09:00 02/09/18 09:55 Potassium Chloride/Sodium Chloride 1,000 ml @ 100 mls/hr Q10H IV 02/07/18 10:20 02/08/18 05:24 Acetaminophen (Tylenol) 650 mg Q4H PRN PO TEMPERATURE > 101.5 F 02/07/18 10:30 Naloxone HCl (Narcan Inj) 0.4 mg UNSCH PRN IV PUSH RESPIRATORY RATE LESS THAN 10 02/07/18 16:30 Diphenhydramine HCl (Benadryl Inj) 25 mg Q6H PRN IV PUSH ITCHING 02/07/18 16:30 Hydromorphone HCl (Dilaudid IRON ASSORTER Inj) 6 mg UNSCH IV 02/07/18 16:30 02/08/18 11:49 IRON ASSORTER Dosage Infused (Pha) 1 Q8HR .XX 02/07/18 22:00 02/08/18 14:30 Pantoprazole Sodium (Protonix) 40 mg DAILY PO 02/08/18 09:00 02/09/18 09:56 Metoprolol Tartrate (Lopressor) 50 mg BID PO 02/08/18 21:00 02/09/18 09:55 Alprazolam (Xanax) 0.5 mg Q6H PO 02/08/18 18:00 02/09/18 06:29 Acetaminophen/ Hydrocodone Bitart (Trilla 5-325 Mg) 1 tab Q6H PRN PO PAIN SCALE 1-10 02/08/18 12:45 02/09/18 10:13 Tizanidine HCl (Zanaflex) 4 mg ONCE ONCE PO 02/09/18 10:45 02/09/18 10:46 UNV (Tess Miller) Medical Decision Making MDM Remarks 57 y/o female s/p L4-L5 PLIF 02/08/18 for lumbar spondylolisthesis (Tess Miller) Plan Plan Remarks dc RACHELE drain, dc home today, cont LSO when out of bed dw pt wound care and activity restrictions, follow up in office next week (Tess Miller) Attending Statement The exam, history, and the medical decision-making described in the above note were completed with the assistance of the mid-level provider. I reviewed and agree with the findings presented. I attest that I had a [id number] encounter with the patient on the same day, and personally performed and documented my assessment and findings in the medical record. (Clifford Estevez MD) Tess Miller Feb 09, 2018 11:15 Clifford Estevez MD Feb 11, 2018 19:11
[2018-02-09 11:20] LABS: BASOPHIL % 0.4 % (0.0-2.0); EOSINOPHIL % 0.1 % (0.0-4.0); HEMATOCRIT 38.7 % (35.0-46.0); HEMOGLOBIN 13.1 GM/DL (11.6-15.3); LYMPH % 21.7 % (9.0-44.0); LYMPHOCYTE # 2.8 TH/MM3 (1.0-4.8); MEAN CELL VOLUME 84.4 FL (80.0-100.0); MEAN CORPUSCULAR HEMOGLOBIN 28.6 PG (27.0-34.0); MEAN CORPUSCULAR HGB CONC 33.9 % (32.0-36.0); MEAN PLATELET VOLUME 7.6 FL (7.0-11.0); MONO % 6.9 % (0.0-8.0); MONOCYTE # 0.9 TH/MM3 (0-0.9); NEUT % 70.9 % (16.0-70.0); PLATELET COUNT 294 TH/MM3 (150-450); RED BLOOD COUNT 4.59 MIL/MM3 (4.00-5.30); RED CELL DISTRIBUTION WIDTH 13.9 % (11.6-17.2); WHITE BLOOD COUNT 12.7 TH/MM3 (4.0-11.0)
[2018-02-09] MEDS ORDERED: WALKER WHEELS/F1 MIS (11:58)
[2018-02-09 12:00] VITALS: BP 133/72; PULSE 92; RESP 18; TEMP 98.2; O2SAT 96
--- NOTE | 2018-02-09 12:00 | HHI.DS ---
Discharge Summary Admission Date Feb 07, 2018 at 06:47 Discharge Date: Feb 09, 2018 Admitting Diagnosis (1) Lumbar spondylosis ICD Code: M47.816 - Lumbar spondylosis Status: Acute (2) Hypertension ICD Code: I10 - Essential (primary) hypertension (3) Hyperlipidemia ICD Code: E78.5 - Hyperlipidemia, unspecified (4) GERD (gastroesophageal reflux disease) ICD Code: K21.9 - Gastro-esophageal reflux disease without esophagitis (5) S/P lumbar spinal fusion ICD Code: Z98.1 - Arthrodesis status Brief History Ms hartman is a 57 year-old female who presented with intractable mechanical back pain and soniya evidence of L5 lower extremity radiculopathy. She was found to have spondylolisthesis with instability at L4-5 during flexion extension xrays. She failed maximum nonsurgical management including multiple modalities of conservative treatment as well as pain management interventions by an interventional pain specialist. A surgical decompression and arthrodhesis were indicated as a last resort. CBC/BMP: 02/09/18 1113 02/08/18 0708 Significant Findings Laboratory Tests Test 02/07/18 07:55 02/07/18 08:30 02/08/18 07:08 02/09/18 11:13 Blood Urea Nitrogen 6 MG/DL (7-18) Random Glucose 141 MG/DL (74-106) 126 MG/DL (74-106) Estimat Glomerular Filtration Rate 76 ML/MIN (>89) 83 ML/MIN (>89) White Blood Count 18.7 TH/MM3 (4.0-11.0) 12.7 TH/MM3 (4.0-11.0) Neutrophils (%) (Auto) 87.0 % (16.0-70.0) 70.9 % (16.0-70.0) Lymphocytes (%) (Auto) 8.5 % (9.0-44.0) Neutrophils # (Auto) 16.3 TH/MM3 (1.8-7.7) 9.0 TH/MM3 (1.8-7.7) Calcium Level 8.4 MG/DL (8.5-10.1) Potassium Level 3.3 MEQ/L (3.5-5.1) Imaging Last Impressions Lumbar Spine X-Ray 02/07/18 0000 Signed Impressions: CONCLUSION: Images document changes related to posterior fusion at L4-L5. Hospital Course Ms. Hartman s/p L4-L5 laminectomy, interbody arthrodesis using PEEK cage and autologous bone graft, L4-L5 instrumental fixation using transpedicular screws and rods, L4-L5 posterolateral fusion using autologous bone graft and demineralized bone matrix. Microsurgical dissection on Feb 07, 2018 for L4-5 spondylolisthesis. Her surgical pain controlled and she was discharged home in stable conditions. Pt Condition on Discharge: Stable Discharge Disposition: Disch w/ Home Health Serv Discharge Instructions DIET: Follow Instructions for: Heart Healthy Diet ACTIVITIES You can perform: Weight Bearing As Flor ADDITIONAL Activity Instructio: Avoid strenuous activities, heavy lifting over 5 lbs, overhead activities, repetitive bending, twisting, pushing, pulling or any activities which might result in stress over the spine. Avoid situation that will put at risk for falls. Use assistive device as needed for walking. Wear provided back brace when out of bed. New Orders: BASIC METABOLIC PROF - 1 Week New Medications: Gabapentin (Gabapentin) 300 Mg Cap 300 MG PO TID PRN for PAIN SCALE 1 TO 10, #90 CAP 1 Refill Walker with Front Wheels (Walker with Front Wheels) 1 Mis Mis EA .XX DIRECTED, #1 0 Refills Hydrocodone/Acetaminophen (Hydrocodone-Acetamin 5-325 mg) 5 Mg-325 Mg Tablet 1 TAB PO Q8HR PRN for PAIN SCALE 1-10, #90 TAB 0 Refills Continued Medications: Alprazolam (Alprazolam) 1 Mg Tab 1 MG PO Q6H for Anxiety, TAB 0 Refills Atorvastatin (Atorvastatin) 20 Mg Tab 20 MG PO HS for Cholesterol Management, #30 TAB 0 Refills Cyclobenzaprine (Flexeril) 10 Mg Tab 10 MG PO TID for Muscle Spasm, #90 TAB 0 Refills Gabapentin (Gabapentin) 600 Mg Tab 600 MG PO TID, #90 TAB 0 Refills Hydrochlorothiazide (Hydrochlorothiazide) 50 Mg Tab 50 MG PO DAILY, #60 TAB 0 Refills Hydrocodone-Acetaminophen ([place]) 10-325 Mg Tab 1 TAB PO Q6H PRN for PAIN, TAB 0 Refills Lactobacillus Rhamnosus (GG) (Align) 4 Mg (1 Billion Cell) Cap 4 MG PO DAILY for Nutritional Supplement, CAP 0 Refills Loratadine (Claritin) 10 Mg Cap 10 MG PO DAILY for Allergy Management, CAP 0 Refills Metoprolol Tartrate (Metoprolol Tartrate) 100 Mg Tab 100 MG PO BID, #60 TAB 0 Refills Multiple Vitamin (Multiple Vitamin) 1 Tab 1 TAB PO DAILY for Nutritional Supplement, TAB 0 Refills Pantoprazole (Pantoprazole) 40 Mg Tab 40 MG PO BID for Reflux, #30 TAB 0 Refills Zaleplon (Sonata) 10 Mg Cap 10 MG PO HS PRN for INSOMNIA, CAP 0 Refills Tess Miller Feb 09, 2018 12:00
--- NOTE | 2018-02-09 12:00 | HHI.DCPOC ---
Discharge Care Plan Diagnosis: (1) S/P lumbar spinal fusion Goals to Promote Your Health * To prevent worsening of your condition and complications * To maintain your health at the optimal level Directions to Meet Your Goals Take your medications as prescribed Follow your dietary instruction Follow activity as directed Keep your appointments as scheduled Take your immunizations and boosters as scheduled If your symptoms worsen call your PCP, if no PCP go to Urgent Care Center or Emergency Room Smoking is Dangerous to Your Health. Avoid second hand smoke Call the 24-hour hour crisis hotline for domestic abuse at Tess Miller Feb 09, 2018 12:00
[2018-02-09 12:02] LABS: CALCIUM 8.8 MG/DL (8.5-10.1); CREATININE 0.62 MG/DL (0.50-1.00)
--- NOTE | 2018-02-09 12:02 | HHI.FF ---
Face to Face Verification Diagnosis: (1) S/P lumbar spinal fusion Physical Therapy Order: Improve ambulation Home Health Nursing Order: Medical education Signs/symptoms of disease process Medication education-adverse effect Wound care and dressing changes (see discharge orders please) Nursing assessment with vital signs I have seen patient Bertha Perez on 02/09/18. My clinical findings support the need for the requested home health care services because: Ltd mobility - disease progression Deconditioned w/ increased weakness High risk of falls I certify that my clinical findings support that this patient is homebound because: Post-op weakness Unsteady gait/balance Tess Miller Feb 09, 2018 12:02
[2018-02-09] MEDS ORDERED: POTASSIUM CHLORIDE 20 MEQ CONTROLLED RELEASE TAB PO ONE ×2 (12:15→16:00)
[2018-02-09] MEDS ORDERED: POTASSIUM CHLOR 20 MEQ PREMIX 100 ML IV SCH (13:00)
--- NOTE | 2018-02-09 14:12 | HHI.PR ---
Subjective Remarks Patient more alert and awake today looking forward to DC Potassium 2.9 today Objective Vitals Vital Signs Date Time Temp Pulse Resp B/P (MAP) Pulse Ox O2 Delivery O2 Flow Rate FiO2 02/09/18 08:00 98.5 88 18 118/65 (82) 96 02/09/18 03:22 98.3 93 18 137/80 (99) 92 02/09/18 00:21 98.3 102 18 121/66 (84) 94 02/08/18 23:32 18 02/08/18 19:21 98.2 98 18 135/62 (86) 93 02/08/18 16:23 98.3 70 18 106/56 (73) 94 02/08/18 14:30 16 Result Diagram: 02/09/18 1113 02/09/18 1113 Other Results Laboratory Tests Test 02/07/18 07:55 02/07/18 08:30 02/08/18 07:08 02/09/18 11:13 Activated Partial Thromboplast Time 25.1 SEC Blood Urea Nitrogen 6 MG/DL 7 MG/DL 8 MG/DL Creatinine 0.78 MG/DL 0.72 MG/DL 0.62 MG/DL Random Glucose 141 MG/DL 126 MG/DL 135 MG/DL Calcium Level 9.2 MG/DL 8.4 MG/DL 8.8 MG/DL Sodium Level 141 MEQ/L 139 MEQ/L 141 MEQ/L Potassium Level 3.8 MEQ/L 3.3 MEQ/L 2.9 MEQ/L Chloride Level 104 MEQ/L 104 MEQ/L 104 MEQ/L Carbon Dioxide Level 26.1 MEQ/L 25.0 MEQ/L 30.0 MEQ/L Anion Gap 11 MEQ/L 10 MEQ/L 7 MEQ/L Estimat Glomerular Filtration Rate 76 ML/MIN 83 ML/MIN 99 ML/MIN Urine Color YELLOW Urine Turbidity CLEAR Urine pH 7.0 Urine Specific [place] 1.014 Urine Protein NEG mg/dL Urine Glucose (UA) NEG mg/dL Urine Ketones NEG mg/dL Urine Occult Blood NEG Urine Nitrite NEG Urine Bilirubin NEG Urine Urobilinogen LESS THAN 2 mg/dL Urine Leukocyte Esterase NEG Urine WBC 1 /hpf Microscopic Urinalysis Comment CATH-CULT NOT IND White Blood Count 18.7 TH/MM3 12.7 TH/MM3 Red Blood Count 4.56 MIL/MM3 4.59 MIL/MM3 Hemoglobin 13.0 GM/DL 13.1 GM/DL Hematocrit 38.7 % 38.7 % Mean Corpuscular Volume 84.8 FL 84.4 FL Mean Corpuscular Hemoglobin 28.5 PG 28.6 PG Mean Corpuscular Hemoglobin Concent 33.7 % 33.9 % Red Cell Distribution Width 13.9 % 13.9 % Platelet Count 312 TH/MM3 294 TH/MM3 Mean Platelet Volume 8.0 FL 7.6 FL Neutrophils (%) (Auto) 87.0 % 70.9 % Lymphocytes (%) (Auto) 8.5 % 21.7 % Monocytes (%) (Auto) 4.4 % 6.9 % Eosinophils (%) (Auto) 0.0 % 0.1 % Basophils (%) (Auto) 0.1 % 0.4 % Neutrophils # (Auto) 16.3 TH/MM3 9.0 TH/MM3 Lymphocytes # (Auto) 1.6 TH/MM3 2.8 TH/MM3 Monocytes # (Auto) 0.8 TH/MM3 0.9 TH/MM3 Eosinophils # (Auto) 0.0 TH/MM3 0.0 TH/MM3 Basophils # (Auto) 0.0 TH/MM3 0.0 TH/MM3 CBC Comment DIFF FINAL DIFF FINAL Differential Comment Imaging Last Impressions Lumbar Spine X-Ray 02/07/18 0000 Signed Impressions: CONCLUSION: Images document changes related to posterior fusion at L4-L5. Objective Remarks GENERAL: This is a well-nourished, well-developed patient, in no apparent distress. CARDIOVASCULAR: Regular rate and rhythm RESPIRATORY: Clear to auscultation. Breath sounds equal bilaterally. GASTROINTESTINAL: Abdomen soft, non-tender, nondistended. Normal active bowel sounds MUSCULOSKELETAL: Extremities without clubbing, cyanosis, or edema. NEURO: Awake and alert. Moves all ext x4 Procedures 02/07/2018 patient underwent: L4-L5 laminectomy, interbody arthrodesis using PEEK cage and autologous bone graft, L4-L5 instrumental fixation using transpedicular screws and rods, L4-L5 posterolateral fusion using autologous bone graft and demineralized bone matrix. Microsurgical dissection with Dr. Estevez. A/P Problem List: (1) Lumbar spondylosis ICD Codes: M47.816 - Lumbar spondylosis Status: Acute Plan: On 02/07/2018 patient underwent: L4-L5 laminectomy, interbody arthrodhesis using PEEK cage and autologous bone graft, L4-L5 instrumental fixation using transpedicular screws and rods, L4-L5 posterolateral fusion using autologous bone graft and demineralized bone matrix. Microsurgical dissection with Dr. Estevez. 02/08/18 Patient currently on Dilaudid TRAVELING SALES EXECUTIVE, discussed with Dr. Estevez ok to DC TRAVELING SALES EXECUTIVE and start PO [place] as needed for pain 02/08/18Patient on scheduled Xanax 1 mg PO Q6H which she takes at home on a regular bases, will decrease to 0.5 mg Q6H also DC Flexeril Patient DC'd by surgery Teds and SCDs for DVT prophylaxis (2) Hypertension ICD Codes: I10 - Essential (primary) hypertension Plan: Continue home metoprolol tartrate 100 mg p.o. twice daily (3) Hyperlipidemia ICD Codes: E78.5 - Hyperlipidemia, unspecified Plan: Continue home atorvastatin 20 mg p.o. nightly (4) GERD (gastroesophageal reflux disease) ICD Codes: K21.9 - Gastro-esophageal reflux disease without esophagitis Plan: Continue home pantoprazole 40 mg p.o. twice daily (5) Hypokalemia ICD Codes: E87.6 - Hypokalemia Plan: Potassium 2.9 today, mag 2.2 Will replace with potassium 40 meq PO x 2 patient cleared for DC once potassium replaced Lanie De Los Santos Feb 09, 2018 14:12
[2018-02-09 16:00] VITALS: BP 145/85; PULSE 96; RESP 18; TEMP 98.9; O2SAT 98
== END 2018-02-09 18:18 | disposition home health service (06) | DRG 455 ==
LOC: HSDI 06:47 → N06B 17:25
PROVIDERS: ADMIT Neurological Surgery; ATTEND Neurological Surgery
PROC: 0SG00J1 Fusion of Lumbar Vertebral Joint with Synthetic Substitute, Posterior Approach, Posterior Column, Open Approach (ICD-10-PCS; 2018-02-07)
PROC: 0ST20ZZ Resection of Lumbar Vertebral Disc, Open Approach (ICD-10-PCS; 2018-02-07)
PROC: 4A11X4G Monitoring of Peripheral Nervous Electrical Activity, Intraoperative, External Approach (ICD-10-PCS; 2018-02-07)
PROC: 0SG00AJ Fusion of Lumbar Vertebral Joint with Interbody Fusion Device, Posterior Approach, Anterior Column, Open Approach (ICD-10-PCS; principal; 2018-02-07 09:05)
DX: M43.16 Spondylolisthesis, lumbar region (principal); I10 Essential (primary) hypertension; M47.26 Other spondylosis with radiculopathy, lumbar region; E78.5 Hyperlipidemia, unspecified; F17.210 Nicotine dependence, cigarettes, uncomplicated; K21.9 Gastro-esophageal reflux disease without esophagitis; F41.9 Anxiety disorder, unspecified; E87.6 Hypokalemia; F32.9 Major depressive disorder, single episode, unspecified; E11.9 Type 2 diabetes mellitus without complications
CPT/HCPCS: 72100; 76000; 80048; 81001; 83735; 85025; 85730; 86850; 86900; 86901; 93005; 94150; 94664; C1713; C9113; J0131; J0690; J1100; J1170; J1580; J2060; J2250; J2270; J2370; J2405; J3010; J3370; J3480; J7030; J7120; J7613; L0484